=== PATIENT | male | born 1955 | race Caucasian/White ===

== ENCOUNTER 2021-03-31 23:21 | Emergency (ER) | payer BC ==
[~2021-03-31] VITALS: Ht 165.1 cm; Wt 79.4 kg
[~2021-03-31 23:21] MED LIST: NAPR550 PO; OXYACE5T PO
== END 2021-04-01 02:29 | disposition home or self-care (01) ==
LOC: ER 23:21
DX: S63.282A Dislocation of proximal interphalangeal joint of right middle finger, initial encounter (principal); S63.284A Dislocation of proximal interphalangeal joint of right ring finger, initial encounter; S63.286A Dislocation of proximal interphalangeal joint of right little finger, initial encounter; I10 Essential (primary) hypertension; W01.0XXA Fall on same level from slipping, tripping and stumbling without subsequent striking against object, initial encounter
CPT/HCPCS: 12002; 26770; 73120; 73130; 90471; 99283-25; A9270

== ENCOUNTER 2022-07-09 13:06 | Day surgery (SDC) | payer MEDICARE, OTHER ==
[~2022-07-09] VITALS: Ht 165.1 cm; Wt 80.8 kg
[2022-07-09] MEDS ORDERED: ATOR10 PO (13:26)
[2022-07-09] MEDS ORDERED: HYDCHL25 (13:26)
[2022-07-09] MEDS ORDERED: LISI20 (13:27)
--- NOTE | 2022-07-09 13:41 | NUR ---
07/09/22 1341 Nikki Ocampo SIGNIFICANT OTHER LEOLA AT BEDSIDE. CALL LIGHT WITHIN REACH.
--- NOTE | 2022-07-09 14:32 | NUR ---
07/09/22 1432 Tea Mo 1 MG EPI ADDED TO EACH OF THE FIRST 3 BAGS OF LR [facility]
== END 2022-07-09 16:30 | disposition home or self-care (01) ==
LOC: ORSCSDS 13:06
PROVIDERS: Orthopaedic Surgery
PROC: 0RNJ4ZZ Release Right Shoulder Joint, Percutaneous Endoscopic Approach (ICD-10-PCS; principal; 2022-07-09 15:15)
PROC: 0LS34ZZ Reposition Right Upper Arm Tendon, Percutaneous Endoscopic Approach (ICD-10-PCS; principal; 2022-07-09 15:15)
DX: S43.421A Sprain of right rotator cuff capsule, initial encounter (principal); M75.21 Bicipital tendinitis, right shoulder; M75.41 Impingement syndrome of right shoulder; M19.011 Primary osteoarthritis, right shoulder; I10 Essential (primary) hypertension; E78.00 Pure hypercholesterolemia, unspecified; Z79.899 Other long term (current) drug therapy
CPT/HCPCS: C1713; J0171; J0690; J1100; J1885; J2250; J2405; J2704; J2710; J3010; J7120

== ENCOUNTER 2023-02-21 13:55 | Day surgery (SDC) | payer MEDICARE, OTHER ==
[~2023-02-21] VITALS: Ht 165.1 cm; Wt 81.8 kg
[~2023-02-21 13:55] MED LIST changes: +ATOR10 PO; +HYDCHL25; +LISI20
[2023-02-21] MEDS ORDERED: OMEGA-3 + VITA200 ML (15:08)
[2023-02-21] MEDS ORDERED: Vitamin D1000 UNI1 (15:08)
[2023-02-21] MEDS ORDERED: CENTRUM SILVER1 EAC2 (15:08)
[2023-02-21] MEDS ORDERED: Vitamin K100 MCG (15:08)
[2023-02-21 17:35] VITALS: BP 146/73
== END 2023-02-21 17:10 | disposition home or self-care (01) ==
LOC: ORSCSDS 13:55
PROVIDERS: Internal Medicine Gastroenterology
PROC: 0DBN8ZX Excision of Sigmoid Colon, Via Natural or Artificial Opening Endoscopic, Diagnostic (ICD-10-PCS; principal; 2023-02-21 15:15)
DX: Z12.11 Encounter for screening for malignant neoplasm of colon (principal); Z86.010 Personal history of colon polyps; K63.5 Polyp of colon; K57.30 Diverticulosis of large intestine without perforation or abscess without bleeding; K64.8 Other hemorrhoids; I10 Essential (primary) hypertension; E78.5 Hyperlipidemia, unspecified; Z79.899 Other long term (current) drug therapy
CPT/HCPCS: J0461; J2001; J2405; J2704; J7120; Q9968

== ENCOUNTER 2023-10-30 14:07 | Observation (INO) | payer MEDICARE, OTHER ==
[~2023-10-30] VITALS: Ht 165.1 cm; Wt 80.1 kg
[~2023-10-30 14:07] MED LIST changes: +CENTRUM SILVER1 EAC2 PO; +OMEGA-3 + VITA200 ML; +Vitamin D1000 UNI1; +Vitamin K100 MCG
[2023-10-30 14:48] LABS: Hematocrit 39.1 % (37.0-53.0); Hemoglobin 13.9 g/dL (13.5-17.5); Mean Corpuscular HGB 31.4 pg (26.0-34.0); Mean Corpuscular HGB Conc 35.5 g/dL (31.5-36.5); Mean Corpuscular Volume 88 fL (80-100); Mean Platelet Volume 9.7 fL (9.1-12.4); Platelet Count 290 K/mm3 (150-400); RDW Coefficient Variation 13.3 % (11.7-14.2); RDW Standard Deviation 43.8 fL (35.1-46.3); Red Blood Cell Count 4.43 M/mm3 (4.30-5.90); White Blood Cell Count 18.24 K/mm3 (4.00-11.30)
[2023-10-30] MEDS ORDERED: Ketorolac Tromethamine 15mg Vial IV ONE (15:00)
[2023-10-30 15:01] LABS: Albumin, Blood 2.8 g/dL (3.4-5.0); Albumin/Globulin Ratio 0.5 (0.8-1.8); Bilirubin, Total 0.6 mg/dL (0.1-1.0); Bun/Creatinine Ratio 29.3 (12.0-20.0); Calcium, Blood 9.9 mg/dL (8.5-10.1); Creatinine, Blood 1.16 mg/dL (0.60-1.20); Globulin, Blood 5.6 g/dL (2.2-4.0); Potassium, Blood 3.1 mmol/L (3.5-5.5); Total Protein, Blood 8.4 g/dL (6.4-8.2)
[2023-10-30 15:13] LABS: BASOPHILS ABSOLUTE MAN 0.18 K/mm3 (0.00-0.23); BASOPHILS PERCENT MAN 1 % (0-2); EOSINOPHILS ABSOLUTE MAN 0.18 K/mm3 (0.00-0.68); EOSINOPHILS PERCENT MAN 1 % (0-6); LYMPHOCYTES PERCENT MAN 11 % (21-46); MONOCYTES ABSOLUTE MAN 2.18 K/mm3 (0.16-1.47); MONOCYTES PERCENT MAN 12 % (4-13); MYELOCYTE ABSOLUTE MAN 0.54 K/mm3 (0.00-0.00); MYELOCYTE PERCENT MAN 3 % (0-0); NEUTROPHILS ABSOLUTE MAN 13.13 K/mm3 (1.96-9.15); SEG NEUTROPHILS PERCENT MAN 72 % (41-73); TOTAL CELLS COUNTED 100
[2023-10-30] MEDS ORDERED: Potassium Chl 20MEQ/Water100ML 100 ML IV ONE (15:35)
[2023-10-30] MEDS ORDERED: Polyethylene Glycol 3350 17 gm PO ONE (16:10)
[2023-10-30] MEDS ORDERED: Piperacillin/Tazobactam Sod 3.375 GM in NS 50 ML IV ONE (16:10)
[2023-10-30] MEDS ORDERED: Potassium Chloride 20 MEQ TabCR PO ONE (16:10)
[2023-10-30] MEDS ORDERED: Acetaminophen 325 MG TABLET PO PRN (17:25)
[2023-10-30] MEDS ORDERED: HYDROcodone 10-APAP 325 TAB PO PRN (17:25)
[2023-10-30] MEDS ORDERED: FLU VACC QS2023-24(6MOS UP)/PF 60 MCG/0.5 ML SYRINGE IM ONE (17:25)
[2023-10-30] MEDS ORDERED: Ondansetron 4 MG TAB PO PRN (17:25)
[2023-10-30] MEDS ORDERED: TraZODone HCl 50 MG Tab PO PRN (17:30)
[2023-10-30] MEDS ORDERED: Lactated Ringer's 1,000 ML IV SCH (18:00)
[2023-10-30] MEDS ORDERED: HYDCHL25 PO (18:06)
[2023-10-30] MEDS ORDERED: LISI20 PO (18:07)
[2023-10-30] MEDS ORDERED: Ketorolac Tromethamine 15mg Vial IV PRN (18:30)
[2023-10-30 20:02] VITALS: BP 133/64
[2023-10-30] MEDS ORDERED: Famotidine 20 MG Tab PO SCH (21:00)
--- NOTE | 2023-10-31 02:17 | NUR ---
JANES RAE. PT RESTING IN BED, PT VERY TIRED. PT FALLING ASLEEP IF NOT BEING SPOKEN TO FOR A FEW MINS. PT VERY COOPRATIVE. MEDICATED WITH TORIDAL AND PT SEEMS VERY COMFORTABLE AT THIS TIME. CALL LIGHT IN REACH.
[2023-10-31] MEDS ORDERED: NS 250 ML IV PRN (02:55)
[2023-10-31 05:00] VITALS: BP 141/68
--- NOTE | 2023-10-31 05:42 | NUR ---
SHIFT SUMMERY, PT RESTING IN BED, PT HAD REQUESTED TORIDAL FOR PAIN . PT SLEEPING MOST OF THE NIGHT. PT HAD BM SPEC TAKEN AND SENT TO LAB. CALL LIGHT IN REACH.
[2023-10-31 05:51] LABS: Hematocrit 34.1 % (37.0-53.0); Mean Corpuscular HGB 30.8 pg (26.0-34.0); Mean Corpuscular HGB Conc 35.2 g/dL (31.5-36.5); Mean Corpuscular Volume 87 fL (80-100); RDW Coefficient Variation 13.4 % (11.7-14.2); White Blood Cell Count 13.89 K/mm3 (4.00-11.30)
[2023-10-31 06:02] LABS: Albumin, Blood 2.4 g/dL (3.4-5.0); Albumin/Globulin Ratio 0.5 (0.8-1.8); Bilirubin, Total 0.8 mg/dL (0.1-1.0); Bun/Creatinine Ratio 27.9 (12.0-20.0); Creatinine, Blood 0.97 mg/dL (0.60-1.20); Globulin, Blood 4.6 g/dL (2.2-4.0); Potassium, Blood 3.4 mmol/L (3.5-5.5)
[2023-10-31 06:15] LABS: BAND PERCENT MAN 3 % (0-8); BASOPHILS PERCENT MAN 0 % (0-2); EOSINOPHILS PERCENT MAN 0 % (0-6); LYMPHOCYTES ABSOLUTE MAN 2.91 K/mm3 (0.84-5.20); LYMPHOCYTES PERCENT MAN 21 % (21-46); MONOCYTES ABSOLUTE MAN 1.11 K/mm3 (0.16-1.47); MONOCYTES PERCENT MAN 8 % (4-13); MYELOCYTE ABSOLUTE MAN 0.27 K/mm3 (0.00-0.00); MYELOCYTE PERCENT MAN 2 % (0-0); Mean Platelet Volume 10.1 fL (9.1-12.4); NEUTROPHILS ABSOLUTE MAN 9.58 K/mm3 (1.96-9.15); Platelet Count 275 K/mm3 (150-400); SEG NEUTROPHILS PERCENT MAN 66 % (41-73); TOTAL CELLS COUNTED 100
[2023-10-31] MEDS ORDERED: Piperacillin/Tazobactam Sod 3.375 GM in NS 50 ML IV SCH ×3 (08:00→09:00)
[2023-10-31 08:25] VITALS: BP 148/68
[2023-10-31] MEDS ORDERED: Lisinopril 10 MG Tab PO SCH (09:00)
[2023-10-31] MEDS ORDERED: HydroCHLOROthiazide 25 mg Tab PO SCH (09:00)
[2023-10-31] MEDS ORDERED: Atorvastatin 10 MG Tab PO SCH (09:00)
[2023-10-31] MEDS ORDERED: Enoxaparin 40 MG/0.4 ML SYR SC SCH (09:00)
[2023-10-31 09:31] LABS: Campylobacter Sp Not Detected (NOT DETECT)
[2023-10-31 09:32] LABS: Adenovirus F 40/41 Not Detected (NOT DETECT); Astrovirus Not Detected (NOT DETECT); Cryptosporidium Not Detected (NOT DETECT); Cyclospora Cayetanensis Not Detected (NOT DETECT); E. Coli O157 Not Detected (NOT DETECT); Entamoeba Histolytica Not Detected (NOT DETECT); Enteroaggregative E. coli-EAEC Not Detected (NOT DETECT); Enteropathogenic E. coli-EPEC Not Detected (NOT DETECT); Enterotoxigenic E. coli-ETEC Not Detected (NOT DETECT); Giardia Lamblia Not Detected (NOT DETECT); Norovirus GI/GII Not Detected (NOT DETECT); Plesiomonas Shigelloides Not Detected (NOT DETECT); Rotavirus A Not Detected (NOT DETECT); Salmonella Sp Not Detected (NOT DETECT); Sapovirus Not Detected (NOT DETECT); Shiga Toxin-prod E. coli-STEC Not Detected (NOT DETECT); Shigella/Enteroin E. coli-EIEC Not Detected (NOT DETECT); Vibrio Cholerae Not Detected (NOT DETECT); Vibrio Sp Not Detected (NOT DETECT); Yersinia Enterocolitica Not Detected (NOT DETECT)
[2023-10-31] MEDS ORDERED: LEVO750 PO (14:43)
== END 2023-10-31 14:54 | disposition home or self-care (01) ==
LOC: ER 14:07 → MEDS 14:08
PROVIDERS: Student in an Organized Health Care Education/Training Program; ADMIT Family Medicine
DX: K52.9 Noninfective gastroenteritis and colitis, unspecified (principal); I10 Essential (primary) hypertension; E78.5 Hyperlipidemia, unspecified; E87.6 Hypokalemia; N52.9 Male erectile dysfunction, unspecified
CPT/HCPCS: 36415; 74177; 80053; 83605; 83690; 83735; 85025; 87040; 87507; 93005; 93010; 96361; 96365; 96367; 96375; 96376; 99285-25; A9270; G0378; J1885; J2543; J3480; J7120; Q9967

== ENCOUNTER → 2023-11-13 | Outpatient (CLI) | payer MEDICARE, OTHER ==
[~2023-11-13] MED LIST changes: +HYDCHL25 PO; +LEVO750 PO; +LISI20 PO
[2023-11-13 18:53] LABS: BASOPHILS ABSOLUTE AUTO 0.08 K/mm3 (0.00-0.23); BASOPHILS PERCENT AUTO 1 % (0-2); EOSINOPHILS ABSOLUTE AUTO 0.24 K/mm3 (0.00-0.68); EOSINOPHILS PERCENT AUTO 4 % (0-6); Hematocrit 34.2 % (37.0-53.0); Hemoglobin 11.4 g/dL (13.5-17.5); IMMATURE GRAN ABSOLUTE AUTO 0.03 K/mm3 (0.00-0.10); IMMATURE GRAN PERCENT AUTO 1 % (0-1); LYMPHOCYTES ABSOLUTE AUTO 1.84 K/mm3 (0.84-5.20); LYMPHOCYTES PERCENT AUTO 28 % (21-46); MONOCYTES ABSOLUTE AUTO 1.27 K/mm3 (0.16-1.47); MONOCYTES PERCENT AUTO 19 % (4-13); Mean Corpuscular HGB 30.8 pg (26.0-34.0); Mean Corpuscular HGB Conc 33.3 g/dL (31.5-36.5); Mean Corpuscular Volume 92 fL (80-100); Mean Platelet Volume 9.4 fL (9.1-12.4); NEUTROPHILS PERCENT AUTO 47 % (41-73); Platelet Count 554 K/mm3 (150-400); RDW Coefficient Variation 12.6 % (11.7-14.2); RDW Standard Deviation 42.8 fL (35.1-46.3); RETICULOCYTE ABSOLUTE 0.0348 M/mm3 (0.0200-0.1100); RETICULOCYTE COUNT PERCENT 0.94 % (0.50-2.50); White Blood Cell Count 6.56 K/mm3 (4.00-11.30)
== END | disposition home or self-care (01) ==
LOC: LAB SHORT 18:46 → LAB 18:46
PROVIDERS: Family Medicine
DX: D64.9 Anemia, unspecified (principal)
CPT/HCPCS: 85025; 85045